=== PATIENT | female | born 1960 | race Caucasian/White ===

== ENCOUNTER → 2016-08-12 | Outpatient (CLI) | payer OTHER ==
[~2016-08-12] MED LIST: BACTROBAN OINT22 GM PO; CLARITIN10 MG PO; DAYPRO600 M1 PO; DOXYCYCLINE MO100 MG PO; KEFLEX500 MG PO; KENALOG0.1% TP; VICODIN 500 MG-1 TAB PO; ZITHROMAX Z PA250 MG PO
== END | disposition home or self-care (01) ==
LOC: MAMMO 02:56
DX: Z12.31 Encounter for screening mammogram for malignant neoplasm of breast (principal)

== ENCOUNTER → 2016-12-12 | Outpatient (CLI) | payer OTHER | END | disposition home or self-care (01) | LOC: MAMMO 11-30 10:00 → US 11-30 10:30 → MAMMO 09:13 | DX: R92.2 Inconclusive mammogram (principal) ==